=== PATIENT | male | born 1970 | race Asian ===

== ENCOUNTER 2017-09-10 15:00 | Emergency (ER) | payer OTHER ==
[~2017-09-10] VITALS: Ht 152.4 cm; Wt 59.0 kg
[2017-09-10 15:05] VITALS: BP 159/89
--- NOTE | 2017-09-10 15:29 | ED HEAD/FACIAL INJ COMPLAINT ---
History of Present Illness General Chief Complaint: Facial or Head Injury Stated Complaint: HIT IN FACE WITH MACHINE DOOR, DIZZY Source: patient, family Exam Limitations: language barrier Vital Signs & Intake/Output Vital Signs & Intake/Output Vital Signs Date Time Temp Pulse Resp B/P B/P Pulse O2 O2 Flow FiO2 Mean Ox Delivery Rate 09/10 1505 98.4 67 18 159/89 98 Room Air Allergies Coded Allergies: No Known Allergies (09/10/17) Reconcile Medications No Known Home Medications Triage Note: 47 [facility]O [facility] AND PAIN ABOVE R EYE. STATES HE WAS HIT IN THE FACE WITH A MACHINE DOOR AROUND 1230 TODAY AND LOST HIS VISION FOR A COUPLE MINUTES. DENIES VISUAL CHANGES AT THIS TIME. DENIES NAUSEA. DENIES LOC. NOTED WITH SLIGHT SWELLING TO R EYEBROW AREA. Triage Nurses Notes Reviewed? yes Onset: Abrupt Severity: mild Severity Numbers: 3 HPI: Patient is a 47-year-old male who presents emergency room with son in which there is a blankets barrier in which the patient is primarily [place] speaking only however son is translating stating that while at work today she was struck by a swinging door to the right side of his head and superior orbit resulting acute onset of pain and swelling. Patient states that he has mild blurriness after the event however this has completely resolved. Denies any eye pain visual acuity changes loss of consciousness neck pain back pain bleeding and is otherwise without complaints. WAS seen at [facility] prior to arrival was advised presents emergency room Past History Travel History Traveled to [place] past 21 day No Medical History Any Pertinent Medical History? none Neurological: NONE EENT: NONE Cardiovascular: NONE Respiratory: NONE Gastrointestinal: NONE Hepatic: NONE Renal: NONE Musculoskeletal: NONE Psychiatric: NONE Endocrine: NONE Blood Disorders: NONE Cancer(s): NONE TEACHER LEARNING DISABLED/Reproductive: NONE Surgical History Surgical History: non-contributory Psychosocial History What is your primary language Other Tobacco Use: Never used Family History Hx Contributory? No Review of Systems Review of Systems Constitutional: Reports: no symptoms. EENTM: Reports: see HPI. Respiratory: Reports: no symptoms. Cardiovascular: Reports: no symptoms. GI: Reports: no symptoms. Genitourinary: Reports: no symptoms. Musculoskeletal: Reports: no symptoms. Skin: Reports: see HPI. Neurological/Psychological: Reports: see HPI. Hematologic/Endocrine: Reports: no symptoms. Immunologic/Allergic: Reports: no symptoms. All Other Systems: Reviewed and Negative Physical Exam Physical Exam General Appearance: no apparent distress, alert, comfortable Head: evidence of injury Eyes: Right: normal appearance, PERRL, EOMI. Ears, Nose, Throat: normal pharynx, normal ENT inspection, hearing grossly normal Neck: normal inspection, no midline tenderness Respiratory: normal breath sounds, chest non-tender, no respiratory distress Cardiovascular: regular rate/rhythm Extremities: normal inspection Psychiatric: awake, alert, oriented x 3 Cranial Nerves: normal hearing, normal speech, PERRL Coordination/Gait: normal finger to nose Skin: intact, normal color, warm/dry Comments: CN II-XII INTACT Diagram Head: 1) Mild swelling and point tenderness skin intact no step-off deformity Progress Differential Diagnosis: corneal abrasion, c-spine injury, facial fracture, globe injury, ICH, orbit fracture, skull fracture Plan of Care: Current Medications Sig/Renetta Start time Last Medication Dose Stop Time Status Admin Ibuprofen 600 MG ONCE ONE 09/10 1615 UNVr (Motrin) 09/10 1616 No signs of trauma after visual inspection of the right eye patient denies any foreign body complaints or eye pain CT scan was resulted no concerns of ICH or fracture I discussed CT scan results with patient and patient will be treated for concerns of minor head injury and concussion Diagnostic Imaging: Viewed by Me: CT Scan. Radiology Impression: no acute abnormality, no fracture Comments: PATIENT: LETICIA NAYLOR PRESENT AGE: 47 PATIENT ACCOUNT NO: [id number] : 70 LOCATION: [facility] ORDERING PHYSICIAN: Keyshawn ELLIS SERVICE DATE: 09/10/17 EXAM TYPE: CAT - CT HEAD WO IV CONTRAST EXAMINATION: CT HEAD WITHOUT CONTRAST CLINICAL INFORMATION: Right orbital and frontal head trauma. COMPARISON: None. TECHNIQUE: Contiguous axial imaging was performed from the skull base to vertex without intravenous administration of contrast. DLP: 620.30 mGy-cm FINDINGS: There is no evidence of acute intracranial hemorrhage or territorial infarction. No abnormal mass effect or midline shift is seen. Martin to white matter differentiation is well preserved. There is fullness of the extra-axial CSF in the high anterior frontal regions which is nonspecific. The ventricles are normal in size. There is no abnormal attenuation within the brain parenchyma. There are no acute osseous findings. There is a small contusion in the right supraorbital soft tissues. The orbital contents appear unremarkable. The mastoid air cells are well-aerated. There is extensive mucoperiosteal thickening in the bilateral ethmoid sinuses. There is mucoperiosteal thickening noted in the superior right maxillary sinus there are areas of opacification in the inferior lateral sphenoid sinuses bilaterally. The nasal septum is deviated to the right. IMPRESSION: 1. There are no acute bleeds or territorial infarcts. 2. There is a contusion of the right supraorbital soft tissues. 3. There are no acute osseous findings. DICTATED BY: Sanjay Johns MD DATE/TIME DICTATED:09/10/171535 [employer] COUNSELOR:JAYSON DATE/TIME TRANSCRIBED:09/10/171535 Departure Departure Disposition: HOME OR SELF CARE Condition: Stable Clinical Impression Primary Impression: Minor head injury Secondary Impressions: Concussion, Contusion of right orbit Referrals: Adry GANN,Omari Mason MD,Navin Casas (PCP/Family) Additional Instructions: As discussed begin icing the area directly 20 minutes every 2 hours, begin over- the-counter ibuprofen 600 mg every 8 hours for pain. If symptoms worsen or if he develop any new concerning symptom return to emergency room, if no better on Saturday follow-up with neurologist Departure Forms: Customer Survey General Discharge Information Prescriptions: Current Visit Scripts No Known Home Medications
--- NOTE | 2017-09-10 15:47 | CT SCAN REPORT ---
EXAMINATION: CT HEAD WITHOUT CONTRAST CLINICAL INFORMATION: Right orbital and frontal head trauma. COMPARISON: None. TECHNIQUE: Contiguous axial imaging was performed from the skull base to vertex without intravenous administration of contrast. DLP: 620.30 mGy-cm FINDINGS: There is no evidence of acute intracranial hemorrhage or territorial infarction. No abnormal mass effect or midline shift is seen. Martin to white matter differentiation is well preserved. There is fullness of the extra-axial CSF in the high anterior frontal regions which is nonspecific. The ventricles are normal in size. There is no abnormal attenuation within the brain parenchyma. There are no acute osseous findings. There is a small contusion in the right supraorbital soft tissues. The orbital contents appear unremarkable. The mastoid air cells are well-aerated. There is extensive mucoperiosteal thickening in the bilateral ethmoid sinuses. There is mucoperiosteal thickening noted in the superior right maxillary sinus there are areas of opacification in the inferior lateral sphenoid sinuses bilaterally. The nasal septum is deviated to the right. IMPRESSION: 1. There are no acute bleeds or territorial infarcts. 2. There is a contusion of the right supraorbital soft tissues. 3. There are no acute osseous findings.
== END 2017-09-10 16:23 ==
LOC: ERH 15:00
DX: S09.90XA Unspecified injury of head, initial encounter (principal); S06.0X0A Concussion without loss of consciousness, initial encounter; S05.11XA Contusion of eyeball and orbital tissues, right eye, initial encounter; W22.8XXA Striking against or struck by other objects, initial encounter; Y92.89 Other specified places as the place of occurrence of the external cause; Y93.9 Activity, unspecified